=== PATIENT | male | born 1965 | race Caucasian/White ===

== ENCOUNTER 2017-05-19 12:31 | Outpatient (RCR) | payer OTHER, SELFPAY ==
[2017-05-12 22:47] LABS: Basophil# 0.01 X10^3/uL; Basophil% 0.1 % (0-1); Eosinophil# 0.12 X10^3/uL; Eosinophils% 1.2 % (0-5); Hematocrit 38.3 % (40-54); Hemoglobin 12.6 g/dl (13.0-16.5); Lymphocyte % 5.8 % (19-41); Mean Corp Hgb Conc 32.9 g/gl (32-36); Mean Corpuscular Hgb 28.8 pg (27.0-32.0); Mean Corpuscular Volume 87.6 fL (80-94); Mean Platelet Vol. 9.7 fl (6.2-12.0); Monocyte# 0.63 X10^3/uL; Monocyte% 6.1 % (0-10); Neutrophil # 9.02 X10^3/uL (2.7-7.7); Neutrophil % 86.7 % (47-70); Platelet Count 188 K/mm3 (150-450); RBC Distribution Width CV 13.9 % (11.6-14.6); RBC Distribution Width SD 44.6 fl (35.1-43.9); Red Blood Count 4.37 M/mm3 (4.6-6.2); White Blood Count 10.4 K/mm3 (4.4-11.0)
[2017-05-12 22:53] LABS: Creatinine, Serum 0.91 mg/dL (0.70-1.30); EST Glomerular Filtration Rate 93 mL/min (>60); Est Glom Filt Rate - Afr Amer 112 mL/min (>60); Vancomycin, Random Level 11.3 ug/mL (0.0-15.0)
[2017-05-12 22:54] LABS: Differential Indicated SCAN CRITERIA MET; POSITIVE COUNT NO; POSITIVE DIFFERENTIAL YES; POSITIVE MORPHOLOGY NO
[2017-05-12 23:19] LABS: Toxic Granulation RARE
[2017-05-12 23:20] LABS: Anisocytosis RARE; Platelet Estimate ADEQUATE (ADEQ)
[2017-05-19 14:55] LABS: Absolute Lymphocyte Count 1.24 X10^3/ul (0.83-4.51); Absolute Neutrophil Count 4.2 X10^3/uL (2.0-7.7); Basophil# 0.04 X10^3/uL; Basophil% 0.6 % (0-1); Eosinophil# 0.16 X10^3/uL; Eosinophils% 2.5 % (0-5); Hematocrit 38.5 % (40-54); Hemoglobin 12.3 g/dl (13.0-16.5); Lymphocyte # 1.24 X10^3/ul (4.0); Lymphocyte % 19.6 % (19-41); Mean Corp Hgb Conc 31.9 g/gl (32-36); Mean Corpuscular Hgb 28.3 pg (27.0-32.0); Mean Corpuscular Volume 88.5 fL (80-94); Mean Platelet Vol. 10.4 fl (6.2-12.0); Monocyte# 0.73 X10^3/uL; Monocyte% 11.5 % (0-10); Neutrophil # 4.16 X10^3/uL (2.7-7.7); Neutrophil % 65.6 % (47-70); Platelet Count 199 K/mm3 (150-450); RBC Distribution Width CV 14.2 % (11.6-14.6); RBC Distribution Width SD 46.2 fl (35.1-43.9); Red Blood Count 4.35 M/mm3 (4.6-6.2); White Blood Count 6.3 K/mm3 (4.4-11.0)
[2017-05-19 14:57] LABS: POSITIVE COUNT NO; POSITIVE DIFFERENTIAL NO; POSITIVE MORPHOLOGY NO
[2017-05-19 15:04] LABS: Vancomycin, Random Level 12.2 ug/mL (0.0-15.0)
[2017-05-19 15:05] LABS: Creatinine, Serum 1.02 mg/dL (0.70-1.30); EST Glomerular Filtration Rate 82 mL/min (>60); Est Glom Filt Rate - Afr Amer 99 mL/min (>60)
== END 2017-06-04 23:59 ==
LOC: HHLAB 12:31
PROVIDERS: Family Provider Family Medicine; PCP Family Medicine
DX: Z79.2 Long term (current) use of antibiotics (principal); Z87.891 Personal history of nicotine dependence
CPT/HCPCS: 80202; 82565; 85025

== ENCOUNTER → 2018-02-14 09:51 | Outpatient (CLI) | payer OTHER, SELFPAY ==
[2018-02-14 10:28] LABS: International Normalized Ratio 2.3; Prothrombin Time (Protime)PT. 25.3 SECONDS (11.7-14.9)
== END ==
PROVIDERS: Family Provider Internal Medicine; PCP Internal Medicine; Referring Provider Internal Medicine; Visit Provider Internal Medicine
DX: I48.91 Unspecified atrial fibrillation (principal); I51.3 Intracardiac thrombosis, not elsewhere classified
CPT/HCPCS: 36415; 85610

== ENCOUNTER → 2018-06-03 11:56 | Outpatient (CLI) | payer OTHER, SELFPAY ==
[2018-06-03 12:26] LABS: International Normalized Ratio 1.8; Prothrombin Time (Protime)PT. 20.5 SECONDS (11.7-14.9)
== END ==
PROVIDERS: Family Provider Internal Medicine; PCP Internal Medicine; Referring Provider Internal Medicine; Visit Provider Internal Medicine
DX: I48.91 Unspecified atrial fibrillation (principal); I51.3 Intracardiac thrombosis, not elsewhere classified
CPT/HCPCS: 85610

== ENCOUNTER → 2019-02-11 | Outpatient (CLI) | payer OTHER, SELFPAY | END | disposition home or self-care (01) | LOC: LAB 15:27 | PROVIDERS: Family Provider Internal Medicine; PCP Internal Medicine | DX: I50.43 Acute on chronic combined systolic (congestive) and diastolic (congestive) heart failure (principal) | CPT/HCPCS: 36415 ==

== ENCOUNTER 2019-11-05 06:12 | Emergency (ER) | payer OTHER, SELFPAY ==
[2019-11-05 06:16] VITALS: BP 107/85; PULSE 104; RESP 18; TEMP 36.4; O2SAT 95; BMI 24.6
--- NOTE | 2019-11-05 06:22 | EKG12_ITS ---
Test Reason : ABD PAIN/HEART HX Blood Pressure : / mmHG Vent. Rate : 087 BPM Atrial Rate : 277 BPM P-R Int : 000 ms QRS Dur : 122 ms QT Int : 422 ms P-R-T Axes : 000 -01 147 degrees QTc Int : 507 ms Atrial flutter with variable A-V block with premature ventricular or aberrantly conducted complexes Non-specific intra-ventricular conduction delay ST & T wave abnormality, consider lateral ischemia Abnormal ECG Confirmed by YULIANA CISNEROS ([id number]), editorial cartoonist DISHA DUEÑAS ([id number]) on 11/08/2019 2:16:39 PM Referred By: TONJA Confirmed By:YULIANA CISNEROS
--- NOTE | 2019-11-05 06:23 | CT_ITS ---
HISTORY: ABD PAIN ABOVE UMBILICUS THAT MOVES AROUND. NO N/V/D/C. ADDITIONAL HISTORY: None provided. TECHNIQUE: CT images were obtained of the abdomen and pelvis without IV contrast. Enteric contrast was not given. Number of images including paperwork: 445. A radiation dose optimization technique was used for this scan. COMPARISON: None FINDINGS: Evaluation of the abdominopelvic organs is limited in the absence of contrast. LOWER THORAX: Enlarged heart. Small pericardial effusion. Small bilateral pleural effusions. Interstitial septal thickening and mild ground glass opacities. LIVER: No concerning focal lesion. Enlarged, right lobe approximately 17 cm. GALLBLADDER: No radiopaque calculi. BILE DUCTS: No significant biliary dilatation. SPLEEN: Unremarkable. PANCREAS: Unremarkable. ADRENAL GLANDS: Unremarkable. KIDNEYS/URETERS: Simple bilateral renal cysts. No further evaluation warranted per consensus criteria. BOWEL: No bowel obstruction. No significant bowel wall thickening. No localized inflammation. Colonic diverticulosis. APPENDIX: Normal. FREE FLUID: Small amount of free fluid. FREE AIR: None. LYMPH NODES: No pathologic appearing adenopathy. PERITONEUM, RETROPERITONEUM AND MESENTERY: Otherwise unremarkable. VASCULATURE: Atherosclerotic calcification. ABDOMINAL WALL: Unremarkable. PELVIS: Unremarkable bladder. OSSEOUS AND SOFT TISSUE STRUCTURES: No acute skeletal findings. Degenerative changes. CT/Abdomen/Pelvis without Cont IMPRESSION: No acute abdominopelvic abnormality. Colonic diverticulosis. Congestive heart failure. Individualized dose optimization techniques were used for this CT. at 0758 Reported and signed by: Pooja Whitmore MD Electronically Signed: Pooja Whitmore MD at 7:58 EDT Tel , Service support ,
--- NOTE | 2019-11-05 06:23 | ED.VIS.GEN ---
History of Present Illness Chief Complaint: Abd Pain Informant: Patient Narrative: Patient stated he has been having abdominal pain just above his umbilicus for the last 12 hours after work continuous sharp and dull pain. Worse by laying flat. Relieved by sitting up. No nausea vomiting or diarrhea. He tried Tylenol and ibuprofen with minimal relief of symptoms. He is never had this before. No previous abdominal surgeries. No radiation of pain. Has a history of congestive heart failure. No history of AL in the past. Denies any chest pain or shortness of breath. Past Medical History - Allergies and Home Meds Allergies/Adverse Reactions: Allergies lisinopril Adverse Reaction (Verified 11/05/19 06:24) PT UNSURE OF REACTION Primary Care Physician: Tyrone Mcgowan MD [Primary Care Provider] - Prior records reviewed: Yes Past Medical History: - - CHF Surgical History: - - Reviewed Lives: With Family Smoking Status: Former smoker Alcohol: None Drugs: None Review of Systems General: Denies: Chills, Fever, Sweats Eyes: Denies: Visual changes - bilaterally, Diplopia ENT: Denies: Rhinorrhea, Sore throat Cardiovascular: Denies: Chest pain, Palpitations Respiratory: Denies: Dyspnea, Cough, Dyspnea on exertion Gastrointestinal: Reports: Abdominal pain. Denies: Nausea, Vomiting, Diarrhea, Melena, Hematochezia Genitourinary: Denies: Dysuria, Hematuria, Frequency Musculoskeletal: Denies: Back pain, Extremity Pain Skin: Denies: Rash, Wounds Neurological: Denies: Headache, Weakness, Numbness Physical Exam Vital Signs/Narrative: Vital Signs Temp Pulse Resp BP Pulse Ox 11/05/19 06:16 97.5 F L 104 H 18 107/85 H 95 General: Well nourished, Well developed, No Acute Distress Head: Normocephalic, Atraumatic Eyes: Perrl, EOMI ENT: Moist mucous membranes, No rhinorrhea Neck: Supple, Nontender Cardiovascular: Regular rate, Regular rhythm, No murmurs Respiratory: No distress, CTA bilaterally, Chest nontender Abdomen: Soft, Nondistended, Normal bowel sounds, No masses, Tender - Tender in the epigastric region. Negative for: Guarding, Rebound tenderness Back: Nontender, Normal Inspection Extremities: Nontender, No edema Skin: Normal color, No rash Neurological: Alert, Oriented x3, Cranial nerves II-XII grossly intact, Normal Strength, Normal Sensation Psychological: Normal affect, Normal Mood Diagnostic/Tx/Re-eval - Medical Decision Making IV established. Lab work and CT abdomen pelvis obtained. The patient did not want a thing for pain. Lab work shows elevated liver function test. No leukocytosis. CT abdomen pelvis pending. Will be signed out to the a.m. oncoming physician for final disposition. This patient may have biliary colic versus acute cholecystitis. ED Disposition - Plan for ED Patient: Referrals: Tyrone Mcgowan MD [Primary Care Provider] -
[2019-11-05 06:34] LABS: Absolute Lymphocyte Count 1.14 X10^3/uL (0.83-4.51); Absolute Neutrophil Count 5.5 X10^3/uL (2.0-7.7); Basophil# 0.02 X10^3/uL; Basophil% 0.3 % (0-1); Eosinophil# 0.04 X10^3/uL; Eosinophils% 0.5 % (0-5); Hematocrit 39.4 % (40-54); Hemoglobin 12.9 g/dL (13.0-16.5); Lymphocyte # 1.14 X10^3/ul (4.0); Lymphocyte % 15.6 % (19-41); Mean Corp Hgb Conc 32.7 g/dL (32-36); Mean Corpuscular Hgb 29.3 pg (27.0-32.0); Mean Corpuscular Volume 89.5 fL (80-94); Mean Platelet Vol. 9.5 fl (6.2-12.0); Monocyte# 0.57 X10^3/uL; Monocyte% 7.8 % (0-10); NRBC Flagged by Analyzer 0 % (0-5); Neutrophil % 75.5 % (47-70); Platelet Count 239 K/mm3 (150-450); RBC Distribution Width CV 13.8 % (11.6-14.6); RBC Distribution Width SD 45.1 fl (35.1-43.9); White Blood Count 7.3 K/mm3 (4.4-11.0)
[2019-11-05 06:56] LABS: ALB/GLOB Ratio 1.4 RATIO (0.9-2.4); AST(SGOT) 61 U/L (15-37); Alanine Aminotransfer ALT/SGPT 109 U/L (16-61); Albumin, Serum 3.8 g/dL (3.2-5.0); Alkaline Phosphatase 67 U/L (45-117); Anion Gap 6 (5-15); BUN 28 mg/dL (7-18); BUN/Creat Ratio 27.2 RATIO (10-20); Chloride 110 mmol/L (98-107); Creatinine, Serum 1.03 mg/dL (0.70-1.30); EST Glomerular Filtration Rate 80 mL/min (>60); Est Glom Filt Rate - Afr Amer 97 mL/min (>60); Estimated Creatinine Clearance 76.65 ml/min; Globulin 2.7 g/dL (2.2-4.2); Glucose 100 mg/dL (74-106); Lipase 92 U/L (73-393); Potassium 4.2 mmol/L (3.5-5.1); Protein, Total 6.5 g/dL (6.4-8.2); Sodium Level 140 mmol/L (136-145)
[2019-11-05 07:23] LABS: International Normalized Ratio 2.6; Prothrombin Time (Protime)PT. 27.2 SECONDS (11.7-14.9)
--- NOTE | 2019-11-05 08:05 | US_ITS ---
STUDY: ABDOMINAL ULTRASOUND - RIGHT UPPER QUADRANT REASON FOR VISIT: Male, 54 years old EPIGASTRIC PAIN COMES AND GOES TECHNIQUE: Ultrasound evaluation of the right upper quadrant was performed with real-time and static barron-scale imaging. TECHNICAL QUALITY: Adequate. COMPARISON: CT. FINDINGS: Liver: The liver measures 15.7 cm. There is normal echogenicity of the liver. The bile ducts are within normal limits. There is hepatic color flow. The direction of portal flow is hepatopetal. There is no demonstrated mass lesion. There is small right pleural effusion. Gallbladder: Normal distended gallbladder. The gallbladder wall measures 2 mm. There is a negative sonographic Bowens''s sign. There is no pericholecystic fluid. There are no gallstones. Common Bile Duct (C.B.D.): The common bile duct measures 5 mm. Pancreas: Normal size of the head, body and tail of the pancreas. There is normal echogenicity of the pancreas. There is no demonstrated pancreatic mass or cyst. Right Kidney: Normal size of the right kidney. The right kidney measures 9.4 cm. Normal renal cortex. The right cortex measures 1.3 cm. There is 2.0 cm cyst. There is no right hydronephrosis. US/Gallbladder IMPRESSION: No gallstones or biliary dilatation. Electronically Signed: Ishmael Myrick MD at 10:10 EDT , Service support ,
[2019-11-05] MEDS: Ondansetron 4 MG/2 ML Vial IV (08:29)
[2019-11-05] MEDS: Morphine 4 MG/ML Syringe IV (08:29)
[2019-11-05 09:08] VITALS: BP 106/84; PULSE 66; O2SAT 95
--- NOTE | 2019-11-05 10:41 | ED.VISSUMM ---
- ER Visit Summary Date of Service: 11/05/19 Chief Complaint: [] History of Present Illness: The patient is a 54 M with past medical history of atrial flutter who was signed out to me by Dr. Harish wilkinson at 07 100. At that time CT was pending. CT results are negative however patient does have elevated bilirubin as well as a transaminitis. On reevaluation the patient he is having worsening pain and does request pain medication at this time. Was given morphine and Zofran. This did resolve the patient's pain. Right upper quadrant ultrasound was done which also shows no evidence of cholelithiasis or gallbladder wall thickening or CBD dilatation. There are extensive discussion with the patient he is agreeable to outpatient follow-up. Spoke with Dr. Cleaning who also is agreeable with follow-up. Patient will be given Pepcid for home and advised use Tylenol for pain. Asked to return for worsening symptoms. I did also advise him to refrain from fatty foods. Patient agreeable and discharged home in stable condition. [] This note was generated with [employer] ([employer] dictation software. It may contain incorrect words, spelling, and punctuation that were not noted in review of the chart prior to signing ED Disposition - Plan for ED Patient: Disposition: Home or Assisted Living Diagnosis: Biliary colic Instructions: ED Gallstones with Biliary Colic Prescriptions: Famotidine [Pepcid] 20 mg PO BID #28 tab Transmission Status: Received by [facility] Referrals: Tyrone Mcgowan MD [Primary Care Provider] - Montse Cleaning MD [STAFF PHYSICIAN] - As soon as possible
[2019-11-05 10:54] VITALS: BP 108/87; PULSE 80; RESP 14; TEMP 36.1
== END 2019-11-05 11:00 | disposition home or self-care (01) ==
PROVIDERS: Emergency Medicine; Emergency Provider Emergency Medicine; PCP Internal Medicine
DX: K80.50 Calculus of bile duct without cholangitis or cholecystitis without obstruction (principal); I48.92 Unspecified atrial flutter; Z87.891 Personal history of nicotine dependence
CPT/HCPCS: 74176; 76705; 80053; 83690; 84484; 85025; 85610; 93005; 96374; 96375; 99282; A4216; J2405

== ENCOUNTER 2020-01-14 06:58 | Inpatient (IN) | payer OTHER, SELFPAY ==
[2020-01-14] VITALS (19 sets, daily range): BP systolic 84–106; BP diastolic 60–82; PULSE 76–104; RESP 16–20; TEMP 36.4–37.4; O2SAT 94–98; BMI 23.3; BMI 23.4; BMI 22.9
--- NOTE | 2020-01-14 07:18 | EKG12_ITS ---
Test Reason : A FIB Blood Pressure : / mmHG Vent. Rate : 089 BPM Atrial Rate : 300 BPM P-R Int : 000 ms QRS Dur : 122 ms QT Int : 430 ms P-R-T Axes : 000 -27 165 degrees QTc Int : 523 ms Atrial flutter with variable A-V block Non-specific intra-ventricular conduction delay ST & T wave abnormality, consider lateral ischemia Abnormal ECG Confirmed by PAM PATTON, BUBBA ([id number]), news video editor ART SHAH ([id number]) on 01/17/2020 1:10:00 PM Referred By: ZAHIDA Confirmed By:BUBBA OROZCO MD
--- NOTE | 2020-01-14 07:21 | ED.DCSUM_ITS ---
- ER Visit Summary Date of Service: 01/14/20 Chief Complaint: Cough History of Present Illness: The patient is a [address] Mcgowan. 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 He has a history of atrial fibrillation and is on Coumadin. He reports that he has a cough that began 1 week ago. Is productive yellow sputum. He reports that the sputum is blood-tinged since yesterday. He denies any fever, chills, or chest pain. He denies any sick contacts. He denies any possible exposure to coronavirus. He does report he is had similar episodes in the past. Patient denies any fever, chills, chest pain, shortness of breath. He does report that he has generalized weakness. Physical Examination: Vitals: Stable. Afebrile. General: Well-nourished and well-developed. Head: Normocephalic atraumatic. Neck: Supple, no lymphadenopathy. No JVD. Nontender. Cardiovascular: Irregular rhythm with a 2 out of 6 systolic murmur. Respiratory: No respiratory distress. Clear to auscultation bilaterally. Abdominal: Soft, nontender, nondistended, normal bowel sounds. No guarding, rebound, or peritoneal signs. Back: Nontender. Extremities: Nontender, no edema. Skin: Normal color, no rash. Neurologic: Alert and oriented ?3. Cranial nerves II through XII are intact. Normal strength and sensation. Psych: Normal affect. Test Results: EKG is atrial flutter with variable block at a rate of 89. He has T wave inversions in leads V4 to V6 as well as 1 and aVL. This is unchanged from November of this year. CBC shows an H&H 12.3 and 37.6, segmented neutrophils 82, lymphocytes of 8. Chem-7 shows a chloride of 111, BUN 24, glucose 130, calcium of 8.3. INR is 3.2. COVID-19 is pending. Clinical Impression(s) from Imaging Studies Chest X-Ray 01/14/20 07:25 IMPRESSION: Focal right upper lobe infiltrate, possibly pneumonia in the appropriate clinical setting. Other causes of infiltrate and mass not excluded. If clinical findings are concordant with pneumonia, closed follow-up recommended to ensure resolution. If not, CT chest with contrast should be considered for further assessment. at 0744 Reported and signed by: Pooja Whitmore MD Electronically Signed: Pooja Whitmore MD at 7:44 EDT Tel , Service support , Emergency Department Course and Treatment: Patient had an IV placed. He has a history of CHF and was not given any fluids. He is resting comfortably. Repeat blood pressure is 89/68. Patient reports that his blood pressure is typically 108/68. He was given a 500 cc bolus of normal saline. He is given Rocephin and Zithromax IV. A lactic acid was ordered and returned at 1.1. Blood pressure is increased to 97/73. The patient stood up to go to the bathroom and got very lightheaded. Repeat blood pressure was in the 70 systolic. Blood pressure currently is 106/63. Treatment Plan: Patient had wanted to go home. However, with his hypotension and comorbidities (including ejection fraction of 15%) I think that admission to the hospital is the more reasonable thing to do. Patient will be discussed with the hospital admitted for further evaluation and treatment. Disposition: T admitted in serious condition. Impression: 1. Pneumonia. 2. Coumadin coagulopathy. 3. Hypotension. 4. Ejection fraction of 15%. 5. Atrial flutter. This note was generated with [employer] dictation software. It may contain incorrect words, spelling, and punctuation that were not noted in review of the chart prior to signing ED Disposition - Plan for ED Patient: Instructions: ED PNEUMONITIS Adult Prescriptions: Cefpodoxime Proxetil 200 mg PO BID #14 tab Prescription Printed Azithromycin [Zithromax Z-Sachin] 250 mg PO UD #1 box Prescription Printed Referrals: Tyrone Mcgowan MD [Primary Care Provider] - 01/17/20 Additional Instructions: Do not take Coumadin for the next 2 days. Have your INR checked and speak with your doctor about further dosing of your Coumadin. Antibiotics can make your Coumadin level go up.
--- NOTE | 2020-01-14 07:25 | RAD_ITS ---
HISTORY: cough x 2 days, now coughing up blood ADDITIONAL HISTORY: None provided. EXAMINATION/TECHNIQUE: XR Chest 1 View AP/PA Number of images including paperwork: 1 COMPARISON: None FINDINGS: LUNGS AND PLEURA: Focal right upper lobe consolidation. The lungs are otherwise grossly clear. No sizable pleural effusion or pneumothorax. CARDIAC SILHOUETTE: Unremarkable. MEDIASTINUM AND TERENCE: Unremarkable. UPPER ABDOMEN: Unremarkable. SKELETON AND SOFT TISSUES: No acute skeletal findings. OTHER DEVICES AND HARDWARE: None. RAD/Chest 1 View (Portable) IMPRESSION: Focal right upper lobe infiltrate, possibly pneumonia in the appropriate clinical setting. Other causes of infiltrate and mass not excluded. If clinical findings are concordant with pneumonia, closed follow-up recommended to ensure resolution. If not, CT chest with contrast should be considered for further assessment. at 0744 Reported and signed by: Pooja Whitmore MD Electronically Signed: Pooja Whitmore MD at 7:44 EDT Tel , Service support ,
[2020-01-14 07:28] LABS: Basophil# 0.05 X10^3/uL; Basophil% 0.5 % (0-1); Eosinophil# 0.03 X10^3/uL; Eosinophils% 0.3 % (0-5); Hematocrit 37.6 % (40-54); Hemoglobin 12.3 g/dL (13.0-16.5); Lymphocyte % 8.2 % (19-41); Mean Corp Hgb Conc 32.7 g/dL (32-36); Mean Corpuscular Hgb 29.1 pg (27.0-32.0); Mean Corpuscular Volume 88.9 fL (80-94); Mean Platelet Vol. 9.9 fl (6.2-12.0); Monocyte# 0.96 X10^3/uL; Monocyte% 8.7 % (0-10); NRBC Flagged by Analyzer 0 % (0-5); Neutrophil # 9.01 X10^3/uL (2.7-7.7); Neutrophil % 81.8 % (47-70); Platelet Count 249 K/mm3 (150-450); RBC Distribution Width CV 13.4 % (11.6-14.6); RBC Distribution Width SD 43.8 fl (35.1-43.9); Red Blood Count 4.23 M/mm3 (4.6-6.2)
[2020-01-14 07:34] LABS: International Normalized Ratio 3.2; Prothrombin Time (Protime)PT. 32.4 SECONDS (11.7-14.9)
[2020-01-14 07:38] LABS: Anion Gap 7 (5-15); BUN 24 mg/dL (7-18); BUN/Creat Ratio 24.1 RATIO (10-20); Calcium,Total 8.3 mg/dL (8.5-10.1); Chloride 111 mmol/L (98-107); EST Glomerular Filtration Rate 83 mL/min (>60); Est Glom Filt Rate - Afr Amer 100 mL/min (>60); Estimated Creatinine Clearance 78.95 ml/min; Glucose 132 mg/dL (74-106); Potassium 3.6 mmol/L (3.5-5.1); Sodium Level 141 mmol/L (136-145)
[2020-01-14 09:20] LABS: Lactic Acid 1.1 mmol/L (0.4-1.9)
--- NOTE | 2020-01-14 10:50 | ED.RN ---
PT C/O DIZZINESS, NAUSEA, ABD PAIN, AND BURNING IN THE RIGHT ARM. ON ASSESSMENT, PT'S RIGHT ARM IS RED. DR. GRIFFIN AWARE. ZITHROMAX INFUSION COMPLETE.
[2020-01-14] MEDS: DiphenhydrAMINE 50 MG/ML Syringe 25 MG IV (11:00)
[2020-01-14 11:20] LABS: AST(SGOT) 37 U/L (15-37); Alanine Aminotransfer ALT/SGPT 33 U/L (16-61); Albumin, Serum 3.4 g/dL (3.2-5.0); Alkaline Phosphatase 91 U/L (45-117); Bilirubin, Direct 0.32 mg/dL (0.00-0.30); Globulin 2.6 g/dL (2.2-4.2); Lipase 113 U/L (73-393)
[2020-01-14] MEDS: fentaNYL 100 MCG/2 ML Ampul 50 MCG IV (11:34)
[2020-01-14] MEDS: Ondansetron 4 MG/2 ML Vial IV (11:34)
--- NOTE | 2020-01-14 12:18 | HP.PCM_ITS ---
Problem List (1) Chronic systolic heart failure Status: Chronic (2) Right upper lobe pneumonia Status: Acute History of Present Illness Date of Admission: 01/14/20 Chief Complaint: Cough and hemoptysis for about 4 days The patient is a 54 year old M with history of chronic heart failure, atrial flutter came to ED with cough for 1 week and hemoptysis for last 2 days. Patient denies chest pain or shortness of breath, fever or chills. Cough is productive with yellow sputum and having hemoptysis more than 50 times of his coughing last 2 days. He stated he attended 1 large gathering about 6 days ago. Patient denies any previous history of pneumonia. He has significant history of chronic heart failure and he states his last EF was 10 to 15%. 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 He also developed atrial fibrillation/flutter and is on Coumadin and is supposed to see Dr. LEE in [facility] on January 24 In ED, his blood pressure was low 98/72, heart rate 77 but his baseline blood pressure usually runs around systolic 100 because of heart failure. He felt dizzy while on IV antibiotic. He dropped blood pressure on walking 84/63 and was given 500 normal saline bolus. His map is 81. Chest x-ray shows right upper lobe consolidation. EKG shows atrial flutter with variable rate with nonspecific intraventricular conduction delay, ventricular rate 89 bpm. On November 2019 EKG also it shows atrial flutter. Patient is on Coumadin INR is 3.2. Significant abnormal in basic labs done in ER total bili 2.5, direct 2.32 but normal transaminases and alkaline phosphatase. We will have in November 2019 also showed total bilirubin 1.7. [] Past Medical History Past Medical History (Chronic Problems): Chronic Problems Chronic systolic heart failure (Chronic) Allergies lisinopril Adverse Reaction (Verified 01/14/20 07:02) PT UNSURE OF REACTION Home Medications: Ambulatory Orders Medication Instructions Recorded Amiodarone HCl 200 mg PO DAILY 11/05/19 Isosorbide Dinitrate 40 mg PO TID 11/05/19 Losartan Potassium 12.5 mg PO BID 11/05/19 Sertraline HCl 50 mg PO DAILY 11/05/19 Warfarin [Coumadin ([facility])] 2.5 mg PO 11/05/19 Warfarin [Coumadin ([facility])] 5 mg PO QWEEK 11/05/19 hydrALAZINE [Apresoline] 75 mg PO Q8H 11/05/19 Azithromycin [Zithromax Z-Sachin] 250 mg PO UD #1 box 01/14/20 Cefpodoxime Proxetil 200 mg PO BID #14 tab 01/14/20 Surgical History: - - Reviewed Smoking Status: Never smoker Tobacco Use: Non-smoker Alcohol: None Drugs: None - *Family History Paternal History Items: Heart Disease - OK/coronary artery disease Review of Systems Constitutional: Denies: Chills, Fever, Weight Change HEENT: Denies: Head Aches, Sinus Congestion, Sinus Drainage Cardiovascular: Denies: Chest Pain, Palpitations Respiratory: Reports: Cough, Hemoptysis, Shortness of breath upon exertion. Denies: Shortness of breath at rest, Sputum production Gastrointestinal: Denies: Abdominal Pain, Nausea, Vomiting Genitourinary: Denies: Dysuria, Frequency Musculoskeletal: Denies: Joint Tenderness Skin: Denies: Rash, Wounds Neurological: Denies: Numbness, Tingling, Focal weakness Psychiatric: Denies: Anxiety, Depression, Homicidal Ideations, Suicidal Ideations Hematologic/ Lymphatic: Denies: Easy Bruising, Easy Bleeding VTE Information - Inpt Only VTE Present on Admission: No VTE Mechan Device Prophylaxis: None VTE Pharm Prophylaxis ordered?: Yes Patient Problems: Active and Suspected Problems Right upper lobe pneumonia (Acute) - Physical Exam Vitals/I&O's: Vital Signs Temp Pulse Resp BP Pulse Ox 97.7 F L 89 16 91/77 98 01/14/20 12:16 01/14/20 12:16 01/14/20 12:16 01/14/20 12:16 01/14/20 12:16 Oxygen Delivery Method Room Air Weight: 149 lb 4.047 oz Body Mass Index (BMI) 23.3 Intake and Output for Last 24 Hours 01/12/20 01/13/20 01/14/20 23:59 23:59 23:59 Intake Total 805 / 805 Balance 805 / 805 General: Alert, Oriented x3, Cooperative HEENT: Atraumatic, PERRLA, EOMI, Normocephalic Oral: No Gingival or Mucosal Lesions/ Ulcerations Neck: Supple, No JVD, Negative Carotid Bruits Lungs: Clear to auscultation, No rhonchi, No wheeze, No rales, Diminished - Air entry diminished bilaterally. Cardiovascular: Normal S1, Normal S2, No murmurs, Irregular Rate Abdomen: Bowel Sounds Present, Soft, Non Tender, Non-Distended Extremities: No edema, Capillary Refill Less than 3 Seconds Skin: No rashes, No breakdown Musculoskeletal: No Tenderness to Palpation of Joints or Extremities Neurological: Cranial nerves II-XII grossly intact, Deep Tendon Reflexes 2+/4 and Symmetrical, Neuro grossly intact, Motor Exam 5/5 strength throughout Psych/Mental Status: Normal Affect, Appropriate Laboratory Results 01/14/20 07:17: WBC 11.0, RBC 4.23 L, Hgb 12.3 L, Hct 37.6 L, MCV 88.9, MCH 29.1, MCHC 32.7, RDW Std Deviation 43.8, RDW Coeff of Renato 13.4, Plt Count 249, MPV 9.9, Immature Gran % (Auto) 0.500, Neut % (Auto) 81.8 H, Lymph % (Auto) 8.2 L, Bertie % (Auto) 8.7, Eos % (Auto) 0.3, Baso % (Auto) 0.5, Absolute Neuts (auto) 9.0 H, Absolute Lymphs (auto) 0.90, Nucleated RBC % 0 01/14/20 07:17: PT 32.4 H, INR 3.2 01/14/20 07:17: Sodium 141, Potassium 3.6, Chloride 111 H, Carbon Dioxide 23.0, Anion Gap 7, BUN 24 H, Creatinine 1.00, Estim Creat Clear Calc 78.95, Est GFR (MDRD) Af Amer 100, Est GFR (MDRD) Non-Af 83, BUN/Creatinine Ratio 24.1 H, Glucose 132 H, Calcium 8.3 L 01/14/20 07:17: Lactic Acid 1.1 01/14/20 07:17: Total Bilirubin 2.50 H, Direct Bilirubin 0.32 H, AST 37, ALT 33, Alkaline Phosphatase 91, Total Protein 6.0 L, Albumin 3.4, Globulin 2.6, Lipase 113 01/14/20 07:35: COVID-19 (LIZY) Pending Assessment/Plan All Active Problems Right upper lobe pneumonia (Acute) The patient is a 54 year old M with history of chronic heart failure, atrial flutter came to ED with cough for 1 week and hemoptysis for last 2 days and chest x-ray consistent of right upper lobe pneumonia. Chest x-ray shows right upper lobe consolidation. EKG shows atrial flutter with variable rate with nonspecific intraventricular conduction delay, ventricular rate 89 bpm. [] 1. Right upper lobe pneumonia: There is pending COVID-19 test. If COVID-19 PCR negative, patient can go to PCU on satellite project site monitor and if positive, ICU. Patient had 2 g IV ceftriaxone and Zithromax in ED. Will start on broad- spectrum IV antibiotic Zosyn and doxycycline for atypical coverage. Patient is on amiodarone therefore will avoid Zithromax. Pneumonia work-up including sputum culture, blood culture, urinary antigens, respiratory panel and MRSA from nasal screen. Albuterol PRN for shortness of breath. 2. Chronic systolic heart failure: Obtain previous 2D echo from PCP. Patient does not have leg edema, pulmonary congestion/edema. Patient is on losartan, isosorbide dinitrate, hydralazine and amiodarone at home and is continued. Will obtain 2D echo here. CHF core measures including fluid restriction to 1.5 L, daily weight monitoring, cardiac diet and intake and output charting. 3. Chronic atrial flutter: Patient is scheduled for RFA in [facility] on January 24. Continue amiodarone. INR 3.2 and will temporarily hold Coumadin. Monitor INR daily. 4. VTE prophylaxis: INR supratherapeutic. Inpatient E&M: 93391 In Hosp L3
--- NOTE | 2020-01-14 13:14 | ED.RN ---
lab called about pt being admitted instead of dc'd. covid test changed to inhouse per vitor in lab. pt aware waiting on covid results.
--- NOTE | 2020-01-14 15:09 | ECHOD_ITS ---
Reason For Study: Heart Failure Procedure This was a 2D Doppler, Color Flow transthoracic echocardiogram. Exam performed portable in patient room. Left Ventricle Severely dilated left ventricle. The estimated ejection fraction is 20-25 %. Severe global left ventricular systolic dysfunction. Unable to assess diastolic dysfunction due to arrhythmia. Right Ventricle Moderately dilated right ventricle. Moderately severe global right ventricular systolic dysfunction. Atria The left atrium is severely enlarged. Spontaneous echo suggestive of low flow. The right atrium is moderately enlarged. Mitral Valve Mild (1+) eccentric mitral valve insufficiency. Tricuspid Valve Mild to moderate (1-2+) tricuspid valve insufficiency. Unable to estimate RV systolic pressure due to insufficient tricuspid regurgitant envelope. Aortic Valve Mild diffuse aortic valve thickening. Pulmonic Valve No eccentric pulmonic valve insufficiency. Great Vessels The inferior vena cava is dilated. and partially collapses. Pericardium/Pleural No pericardial effusion. MMode/2D Measurements & Calculations LVIDd: 6.9 cm IVSd: 0.92 cm LA dimension: 6.0 cm LVIDs: 6.3 cm LVPWd: 0.95 cm RVDd: 4.7 cm FS: 9.1 % LAV(MOD-bp): 170.8 ml LA A4 area: 39.1 cm2 RA A4 area: 22.7 cm2 LAV(MOD-bp) Indexed: 96.6 ml/m2 LAV(MOD-sp2): 161.7 ml LAV(MOD-sp4): 160.2 ml Doppler Measurements & Calculations MV E max sarah: 90.9 cm/sec Ao V2 max: 87.0 cm/sec LV V1 max: 83.8 cm/sec Ao max P.2 mmHg LV V1 max P.9 mmHg MR max sarah: 369.5 cm/sec PA V2 max: 78.5 cm/sec TR max sarah: 321.5 cm/sec MR max P.6 mmHg TR max P.3 mmHg MR mean sarah: 295.8 cm/sec MR mean P.0 mmHg MR VTI: 119.2 cm Interpretation Summary Severely dilated left ventricle. The estimated ejection fraction is 20-25 %. Severe global left ventricular systolic dysfunction. Moderately dilated right ventricle. Moderately severe global right ventricular systolic dysfunction. The left atrium is severely enlarged. Spontaneous echo suggestive of low flow The right atrium is moderately enlarged. Mild (1+) eccentric mitral valve insufficiency. Mild to moderate (1-2+) tricuspid valve insufficiency. The inferior vena cava is dilated and partially collapses. Ordering Physician: Ish Garber Referring Physician: Tyrone Mcgowan M.D. Performed By: Awais Kay RCS
[2020-01-14] MEDS: 0.9% Normal Saline 1,000 ML 75 ML IV (15:36)
[2020-01-14 15:59] LABS: Magnesium 2.4 mg/dL (1.6-2.6)
[2020-01-14 16:16] LABS: BNP,B-Type NATRIURETIC PEPTIDE 660.4 pg/mL (0-100)
[2020-01-14] MEDS: Enoxaparin 40 MG/0.4 ML Syringe SC (16:52)
--- NOTE | 2020-01-14 17:39 | NURSING ---
all documentation and medication administration completed by SN Krista, done under the supervision of this RN.
[2020-01-14 17:46] LABS: M R Staph aureus DNA By PCR Negative (Negative); Probe Check PASS; Specimen Processing Control PASS
[2020-01-14] MEDS: guaiFENesin 1,200 MG Tablet 1200 MG PO (21:41)
[2020-01-14] MEDS: Doxycycline 100 MG CAPSULE PO (21:41)
[2020-01-14] MEDS: Furosemide 20 MG/2 ML VIAL IV (22:12)
[2020-01-15] VITALS (11 sets, daily range): BP systolic 92–104; BP diastolic 60–77; PULSE 80–100; RESP 16–18; TEMP 36.4–36.8; O2SAT 95–100
[2020-01-15 07:33] LABS: Absolute Lymphocyte Count 1.61 X10^3/uL (0.83-4.51); Absolute Neutrophil Count 6.3 X10^3/uL (2.0-7.7); Basophil# 0.04 X10^3/uL; Basophil% 0.4 % (0-1); Eosinophil# 0.09 X10^3/uL; Hematocrit 36.2 % (40-54); Hemoglobin 11.8 g/dL (13.0-16.5); Lymphocyte # 1.61 X10^3/ul (4.0); Lymphocyte % 17.8 % (19-41); Mean Corp Hgb Conc 32.6 g/dL (32-36); Mean Corpuscular Hgb 29.1 pg (27.0-32.0); Mean Corpuscular Volume 89.2 fL (80-94); Mean Platelet Vol. 10.2 fl (6.2-12.0); Monocyte# 0.95 X10^3/uL; Monocyte% 10.5 % (0-10); NRBC Flagged by Analyzer 0 % (0-5); Neutrophil # 6.34 X10^3/uL (2.7-7.7); Platelet Count 235 K/mm3 (150-450); RBC Distribution Width CV 13.3 % (11.6-14.6); RBC Distribution Width SD 43.8 fl (35.1-43.9); Red Blood Count 4.06 M/mm3 (4.6-6.2); White Blood Count 9.1 K/mm3 (4.4-11.0)
[2020-01-15 07:43] LABS: International Normalized Ratio 3.4; Prothrombin Time (Protime)PT. 34.3 SECONDS (11.7-14.9)
[2020-01-15 08:07] LABS: AST(SGOT) 75 U/L (15-37); Alanine Aminotransfer ALT/SGPT 98 U/L (16-61); Albumin, Serum 2.8 g/dL (3.2-5.0); Alkaline Phosphatase 185 U/L (45-117); Anion Gap 10 (5-15); BUN 26 mg/dL (7-18); BUN/Creat Ratio 27.1 RATIO (10-20); Bilirubin, Direct 0.48 mg/dL (0.00-0.30); Calcium,Total 8.2 mg/dL (8.5-10.1); Chloride 107 mmol/L (98-107); Cholesterol 97 mg/dL (200); Creatinine, Serum 0.96 mg/dL (0.70-1.30); EST Glomerular Filtration Rate 87 mL/min (>60); Est Glom Filt Rate - Afr Amer 105 mL/min (>60); Estimated Creatinine Clearance 81.37 ml/min; Globulin 3.2 g/dL (2.2-4.2); Glucose 82 mg/dL (74-106); High Density Lipoprotein 37 mg/dL; Potassium 3.2 mmol/L (3.5-5.1); Sodium Level 140 mmol/L (136-145); Triglycerides 62 mg/dL; Very Low Density Lipoprotein 12 mg/dL (5-40)
[2020-01-15] MEDS: Amiodarone 200 MG Tablet PO (09:31)
[2020-01-15] MEDS: Doxycycline 100 MG CAPSULE PO (09:31)
[2020-01-15] MEDS: Enoxaparin 40 MG/0.4 ML Syringe SC (09:31)
[2020-01-15] MEDS: Losartan Potassium 25 MG Tablet 12.5 MG PO (09:31)
[2020-01-15] MEDS: Sertraline 50 MG Tablet PO (09:31)
[2020-01-15] MEDS: guaiFENesin 1,200 MG Tablet 1200 MG PO ×2 (09:31→21:03)
--- NOTE | 2020-01-15 13:34 | PCM.PN.HOSP ---
Patient Problems: Active and Suspected Problems Right upper lobe pneumonia (Acute) Reason for Visit: Follow-up for pneumonia and advanced heart failure Objective: Seen and examined. Patient shortness of breath is much better. Still has some occasional blood-tinged sputum. Patient is not on beta-jennifer because it makes him extremely fatigued and he cannot move himself and he was admitted 2-3 times in outside hospital, [facility] [place] for that. Patient also has significant concern about interaction about doxycycline giving rise to nausea, dyspeptic symptoms and therefore discontinued. Physical exam General: Alert, Oriented x3, Cooperative HEENT: Atraumatic, PERRLA, EOMI, Normocephalic Oral: No Gingival or Mucosal Lesions/ Ulcerations Neck: Supple, No JVD, Negative Carotid Bruits Lungs: Air entry diminished in bilateral lung bases. No crepitation/rhonchi. No tachypnea. Cardiovascular: Irregular heart rate, 9200/min. Normal S1, Normal S2, No murmurs Abdomen: Bowel Sounds Present, Soft, Non Tender, Non-Distended : No renal angle tenderness. No suprapubic tenderness. Extremities: No edema, Capillary Refill Less than 3 Seconds Skin: No rashes, No breakdown Musculoskeletal: No Tenderness to Palpation of Joints or Extremities Neurological: Cranial nerves II-XII grossly intact, Deep Tendon Reflexes 2+/4 and Symmetrical, Neuro grossly intact Psych/Mental Status: Normal Affect, Appropriate. Vitals/I&O's: Vital Signs Temp Pulse Resp BP Pulse Ox 97.6 F L 95 18 102/77 100 01/15/20 11:30 01/15/20 11:30 01/15/20 11:30 01/15/20 11:30 01/15/20 11:30 Oxygen Flow Rate (L/min) 2 Oxygen Delivery Method Nasal Cannula Weight: 144 lb 2.917 oz Body Mass Index (BMI) 22.9 Intake and Output for Last 24 Hours 01/13/20 01/14/20 01/15/20 23:59 23:59 23:59 Intake Total 1716.67 / 1716.67 649.58 / 649.58 Output Total 750 / 750 600 / 600 Balance 966.67 / 966.67 49.58 / 49.58 Microbiology Past 72 Hours 01/14/20 16:45 Sputum, Expectorated/Coughed Gram Stain - Final 01/14/20 07:17 Mucosa - Nose Respiratory Panel (PCR) - Final Rhinovirus 01/14/20 23:45 Urine, Clean Catch Legionella Antigen - Final 01/14/20 23:45 Urine, Clean Catch Streptococcus pneumoniae Antigen (M - Final Laboratory Results 01/14/20 07:17: COVID-19 (LIZY) Not Detected 01/14/20 07:17: B-Natriuretic Peptide 660.4 H 01/14/20 07:17: Magnesium 2.4 01/14/20 15:48: MRSA (PCR) Negative 01/15/20 06:18: PT 34.3 H, INR 3.4 01/15/20 06:18: Sodium 140, Potassium 3.2 L, Chloride 107, Carbon Dioxide 23.0, Anion Gap 10, BUN 26 H, Creatinine 0.96, Estim Creat Clear Calc 81.37, Est GFR (MDRD) Af Amer 105, Est GFR (MDRD) Non-Af 87, BUN/Creatinine Ratio 27.1 H, Glucose 82, Calcium 8.2 L, Total Bilirubin 1.90 H, Direct Bilirubin 0.48 H, AST 75 H, ALT 98 H, Alkaline Phosphatase 185 H, Total Protein 6.0 L, Albumin 2.8 L, Globulin 3.2, Triglycerides 62, Cholesterol 97, LDL Cholesterol 48, VLDL Cholesterol 12, HDL Cholesterol 37 L 01/15/20 06:18: WBC 9.1, RBC 4.06 L, Hgb 11.8 L, Hct 36.2 L, MCV 89.2, MCH 29.1, MCHC 32.6, RDW Std Deviation 43.8, RDW Coeff of Renato 13.3, Plt Count 235, MPV 10.2, Immature Gran % (Auto) 0.300, Neut % (Auto) 70.0, Lymph % (Auto) 17.8 L, [place] % (Auto) 10.5 H, Eos % (Auto) 1.0, Baso % (Auto) 0.4, Absolute Neuts (auto) 6.3, Absolute Lymphs (auto) 1.61, Nucleated RBC % 0 Current Medications Acetaminophen (Tylenol) 650 mg PO Q6H PRN PRN PRN Reason: Pain Score 1-10/Temp > 100.7 F Al Hydroxide/Mg Hydroxide (Mylanta Ii) 30 ml PO Q6H PRN PRN PRN Reason: Gastric Burning Albuterol Sulfate (Ventolin Aerosols) 2.5 mg INHALATION Q2H PRN PRN PRN Reason: SOB/Wheezing Amiodarone HCl (Cordarone) 200 mg PO DAILY [facility] Last Admin: 01/15/20 09:31 Dose: 200 mg Documented by: Doxycycline Monohydrate (Doxycycline) 100 mg PO BID [facility] Last Admin: 01/15/20 09:31 Dose: 100 mg Documented by: Enoxaparin Sodium (Lovenox) 40 mg SC DAILY [facility] Last Admin: 01/15/20 09:31 Dose: 40 mg Documented by: Guaifenesin (Mucinex) 1,200 mg PO BID [facility] Last Admin: 01/15/20 09:31 Dose: 1,200 mg Documented by: Hydralazine HCl (Apresoline) 75 mg PO Q8 [facility] Last Admin: 01/15/20 13:27 Dose: Not Given Documented by: Piperacillin Sod/Tazobactam (Sod 3.375 gm/ Sodium Chloride) 50 mls @ 12.5 mls/hr IV Q8 [facility] Stop: 01/21/20 16:01 Last Admin: 01/15/20 13:26 Dose: 12.5 mls/hr Documented by: Isosorbide Dinitrate (Isordil) 40 mg PO TID [facility] Last Admin: 01/15/20 05:36 Dose: Not Given Documented by: Lactobacillus Acidophilus (Acidophilus) 1 tablet PO BID [facility] Last Admin: 01/15/20 09:31 Dose: 1 tablet Documented by: Losartan Potassium (Cozaar) 12.5 mg PO BID [facility] Last Admin: 01/15/20 09:31 Dose: 12.5 mg Documented by: Morphine Sulfate () 2 mg IV Q3H PRN PRN PRN Reason: Pain Score 6-10/10 Oxycodone HCl (Oxyir) 5 mg PO Q4H PRN PRN PRN Reason: Pain Score 4-5/10 Senna/Docusate Sodium (Senokot-S, Genie-Colace) 2 tablet PO BID PRN PRN PRN Reason: Constipation Sertraline HCl (Zoloft) 50 mg PO DAILY [facility] Last Admin: 01/15/20 09:31 Dose: 50 mg Documented by: Sodium Chloride () 10 - 40 ml IV UD PRN PRN Reason: SALINE FLUSH STROKE Vital Signs/Narrative: Vital Signs Temp Pulse Resp BP BP Pulse Ox 01/15/20 11:30 97.6 F L 95 18 102/77 100 01/15/20 09:35 104/67 Medical Necessity - Tobacco Use Smoking Status: Never smoker Tobacco Use: Non-smoker Assessment/Plan All Active Problems Right upper lobe pneumonia (Acute) The patient is a 54 year old M with history of chronic heart failure, atrial flutter came to ED with cough for 1 week and hemoptysis for last 2 days and chest x-ray consistent of right upper lobe pneumonia. Chest x-ray shows right upper lobe consolidation. EKG shows atrial flutter with variable rate with nonspecific intraventricular conduction delay, ventricular rate 89 bpm. [] 1. Right upper lobe pneumonia most likely bacterial superimposed on rhinovirus: Patient is being admitted in PCU after COVID-19 PCR came negative. Patient had 2 g IV ceftriaxone and Zithromax in ED. patient started on broad-spectrum antibiotics Zosyn. Doxycycline discontinued after rhinovirus came positive. Respiratory panel positive of rhinovirus. Blood cultures x2 are pending. Gram stain shows 1+ gram-positive rods, 1+ gram-negative rods and rare WBC and RBC. Albuterol PRN for shortness of breath. 2. Chronic systolic heart failure: Patient does not have leg edema, pulmonary congestion/edema. Patient is on losartan, isosorbide dinitrate, hydralazine and amiodarone at home and is continued. CHF core measures including fluid restriction to 1.5 L, daily weight monitoring, cardiac diet and intake and output charting. 2D echo 01/15/2020 Interpretation Summary Severely dilated left ventricle. The estimated ejection fraction is 20-25 %. Severe global left ventricular systolic dysfunction. Moderately dilated right ventricle. Moderately severe global right ventricular systolic dysfunction. The left atrium is severely enlarged. Spontaneous echo suggestive of low flow The right atrium is moderately enlarged. Mild (1+) eccentric mitral valve insufficiency. Mild to moderate (1-2+) tricuspid valve insufficiency. The inferior vena cava is dilated and partially collapses. 3. Chronic atrial flutter: Patient is scheduled for RFA in [facility] on January 24. Continue amiodarone. Heart rate is controlled. INR elevated. Continue to hold Coumadin monitor INR daily. 4. VTE prophylaxis: INR supratherapeutic. Inpatient E&M: 48298 Subs Hosp L2
--- NOTE | 2020-01-15 13:49 | CASEMGMT ---
MIGUEL SETH assessment: Phone interview with patient for initial transition planning/care coordination assessment d/t pt being in droplet precautions at this time. MIGUEL SETH introduced self and role at [facility], pt voices understanding and consents to assessment at this time. Pt is A/Ox4 at this time and answers all questions appropriately at this time. Care providers, pharmacy, and demographics verified at this time. Presentation: Pt c/o cough x2 days, now coughing up blood-pt to have cardiac ablation 01/27/2020 Admitting dx: PCP: Juan M Specialists: AMAN Barone philatelic consultant; Db Santizo philatelic consultant-to do ablation Preferred Pharmacy: [facility] Insurance: [facility] [place] Prescription Benefit: Self pay, states no concerns Living Will/HPOA: Pt states has a LW but not a HPOA at this time and is aware that the LW is not on file at [facility] at this time. LNOK: Nava Love, Living Arrangements: Pt states lives with in 2 story home and states no concerns at home at this time. Pt states is independent with ADL's. Transportation: Pt states no transportation concerns at this time. DME/HHC: Pt states no current DME or need for any at this time. Pt states on hx of HHC or SNF in the past. Pt states no concerns with going home at time of discharge. 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 Pt states does not smoke cigarettes or drink ETOH. Pt states no further concerns/needs at this time. CM to follow for any further discharge planning/needs. Advised pt to ask for CM if any further questions/concerns/needs arise, voices understanding. Pt Goal: Home Plan[place] MIGUEL SETH
[2020-01-15 14:35] LABS: Magnesium 2.1 mg/dL (1.6-2.6); Phosphorus 3.6 mg/dL (2.5-4.9)
[2020-01-15] MEDS: Isosorbide DN 20 MG Tablet 40 MG PO (14:45)
[2020-01-15] MEDS: Metoclopramide 10 MG/2 ML Vial 5 MG IV ×2 (14:47→21:01)
[2020-01-15] MEDS: 0.9% Saline Lock 10 ML Syringe IV ×2 (14:47→21:01)
[2020-01-15] MEDS: oxyCODONE 5 MG Tablet PO (23:18)
[2020-01-15] MEDS: Acetaminophen 325 MG Tablet 650 MG PO (23:19)
[2020-01-16] VITALS (7 sets, daily range): BP systolic 95–123; BP diastolic 57–82; PULSE 81–100; RESP 16–18; TEMP 36.6–37; O2SAT 95–98
[2020-01-16] MEDS: Pantoprazole Sodium 20 MG Tablet PO ×2 (00:09→09:09)
[2020-01-16] MEDS: Mag Hydrox/Al Hydrox/Simeth 30 ML UDC PO (00:09)
[2020-01-16] MEDS: hydrALAZINE 50 MG Tablet 75 MG PO (06:18)
[2020-01-16] MEDS: Isosorbide DN 20 MG Tablet 40 MG PO (06:19)
[2020-01-16 06:34] LABS: Prothrombin Time (Protime)PT. 37.5 SECONDS (11.7-14.9)
[2020-01-16 06:50] LABS: AST(SGOT) 92 U/L (15-37); Alanine Aminotransfer ALT/SGPT 145 U/L (16-61); Albumin, Serum 2.8 g/dL (3.2-5.0); Alkaline Phosphatase 164 U/L (45-117); Bilirubin, Direct 0.37 mg/dL (0.00-0.30); Globulin 3.4 g/dL (2.2-4.2); Protein, Total 6.2 g/dL (6.4-8.2)
[2020-01-16 06:52] LABS: International Normalized Ratio 3.8
[2020-01-16] MEDS: Sertraline 50 MG Tablet PO (09:09)
[2020-01-16] MEDS: guaiFENesin 1,200 MG Tablet 1200 MG PO (09:09)
[2020-01-16] MEDS: Amiodarone 200 MG Tablet PO (09:18)
[2020-01-16 10:53] LABS: Absolute Lymphocyte Count 1.37 X10^3/uL (0.83-4.51); Absolute Neutrophil Count 5.5 X10^3/uL (2.0-7.7); Basophil# 0.02 X10^3/uL; Basophil% 0.3 % (0-1); Eosinophil# 0.04 X10^3/uL; Eosinophils% 0.5 % (0-5); Hemoglobin 11.7 g/dL (13.0-16.5); Lymphocyte # 1.37 X10^3/ul (4.0); Lymphocyte % 17.7 % (19-41); Mean Corp Hgb Conc 31.6 g/dL (32-36); Mean Corpuscular Hgb 28.4 pg (27.0-32.0); Mean Corpuscular Volume 89.8 fL (80-94); Mean Platelet Vol. 10.4 fl (6.2-12.0); Monocyte# 0.81 X10^3/uL; Monocyte% 10.4 % (0-10); NRBC Flagged by Analyzer 0 % (0-5); Neutrophil # 5.49 X10^3/uL (2.7-7.7); Neutrophil % 70.7 % (47-70); Platelet Count 247 K/mm3 (150-450); RBC Distribution Width CV 13.2 % (11.6-14.6); RBC Distribution Width SD 43.7 fl (35.1-43.9); Red Blood Count 4.12 M/mm3 (4.6-6.2); White Blood Count 7.8 K/mm3 (4.4-11.0)
[2020-01-16 11:11] LABS: Anion Gap 9 (5-15); BUN 28 mg/dL (7-18); BUN/Creat Ratio 32.9 RATIO (10-20); Calcium,Total 8.6 mg/dL (8.5-10.1); Chloride 113 mmol/L (98-107); Creatinine, Serum 0.85 mg/dL (0.70-1.30); EST Glomerular Filtration Rate 100 mL/min (>60); Est Glom Filt Rate - Afr Amer 120 mL/min (>60); Estimated Creatinine Clearance 92.89 ml/min; Glucose 102 mg/dL (74-106); Magnesium 2.2 mg/dL (1.6-2.6); Phosphorus 3.2 mg/dL (2.5-4.9); Potassium 4.1 mmol/L (3.5-5.1); Sodium Level 143 mmol/L (136-145)
--- NOTE | 2020-01-16 11:26 | DCINST_ITS ---
- Discharge Diagnoses Current Active Problems: Current Active and Chronic Problems Chronic systolic heart failure (Chronic) Right upper lobe pneumonia (Acute) You will use the following diet at home:: Cardiac Your food should be the consistency of: Regular Your liquids should be the consistency of: Regular/Thin Discharge Activity: May Not Drive Instructions: ED PNEUMONITIS Adult Additional Instructions: Advised PT/INR on 01/19/2020 and follow with PCP to titrate the dose Coumadin accordingly. Currently hold Coumadin as INR is expected to go up while the patient is on antibiotic, Levaquin. Follow-up solar sales estimator Dr. Sales in [facility] on January 24 for radiofrequency ablation for atrial flutter/fibrillation and [facility] solar sales estimator Dr. Barone. Allergies/Adverse Reactions: Allergies azithromycin [From Zithromax] Allergy (Verified 01/14/20 15:47) Rash lisinopril Adverse Reaction (Verified 01/14/20 14:35) cough Medications to take at Discharge Amiodarone HCl 200 mg PO DAILY 11/05/19 Isosorbide Dinitrate 40 mg PO TID 11/05/19 Losartan Potassium 12.5 mg PO BID 11/05/19 Sertraline HCl 50 mg PO DAILY 11/05/19 hydrALAZINE [Apresoline] 75 mg PO Q8H 11/05/19 Ibuprofen 400 mg PO DAILY PRN PRN 01/14/20 Lactobacillus Acidophilus [Probiotic] 1 cap PO BID 01/14/20 [place]-3 Fatty Acids/Fish Oil [[place] 3 1,000 mg Softgel] 1 cap PO BID 01/14/20 Guaifenesin [Mucinex] 1,200 mg PO BID #14 tab 01/16/20 Warfarin [Coumadin] 2.5 mg PO SUMOTUWEFRSA #0 01/16/20 Warfarin [Coumadin] 5 mg PO TH #0 01/16/20 levoFLOXacin tablet [Levaquin tablet] 500 mg PO DAILY #5 tab 01/16/20 The following prescriptions were given: levoFLOXacin tablet [Levaquin tablet] 500 mg PO DAILY #5 tab Transmission Status: Pending to [facility] Guaifenesin [Mucinex] 1,200 mg PO BID #14 tab Transmission Status: Pending to [facility] Primary Care Physician: Tyrone Mcgowan MD [Primary Care Provider] - 01/17/20 Please follow up with your Primary Care Physician in: in 2 weeks Test Results: Test results from this visit will be discussed in further detail at your follow- up appointment, if applicable.
--- NOTE | 2020-01-16 11:32 | PCM.DC.SUM ---
Discharge Date and Diagnosis - Problem List Patient Problems: Active and Suspected Problems Right upper lobe pneumonia (Acute) Date of Admission: 01/14/20 Date of Discharge: 01/16/20 - Primary Discharge Diagnosis Acute Problems: Active Problems Right upper lobe pneumonia (Acute) Right upper lobe pneumonia probably bacterial superinfection on rhinovirus. - Secondary Discharge Diagnosis Chronic Problems: Chronic Problems Chronic systolic heart failure (Chronic) Hospital Course and Treatment Summary of Care Provided: [] The patient is a 54 year old M with history of chronic heart failure, atrial flutter came to ED with cough for 1 week and hemoptysis for last 2 days and chest x-ray consistent of right upper lobe pneumonia. Chest x-ray shows right upper lobe consolidation. EKG shows atrial flutter with variable rate with nonspecific intraventricular conduction delay, ventricular rate 89 bpm. [] 1. Right upper lobe pneumonia most likely bacterial superimposed on rhinovirus: Patient is being admitted in PCU after COVID-19 PCR came negative. Patient had 2 g IV ceftriaxone and Zithromax in ED. patient started on broad-spectrum antibiotics Zosyn. Doxycycline discontinued after rhinovirus came positive. Respiratory panel positive of rhinovirus. Blood cultures x2 are negative for 2 days. Preliminary Gram stain shows normal respiratory ann. Patient also had some diarrhea which is not new for him. He intermittently gets bloating, dyspeptic symptoms and diarrhea. As per patient he has not been diagnosed with any specific disease for that. C. difficile is negative. On lactobacillus. He denies lactose intolerance, celiac disease and IBS. Patient had 3 days of IV antibiotics and pneumonia symptoms have improved. Discharged on 5 more days of Levaquin. 2. Chronic systolic heart failure: Patient does not have leg edema, pulmonary congestion/edema. Patient is on losartan, isosorbide dinitrate, hydralazine and amiodarone at home and is continued. CHF core measures including fluid restriction to 1.5 L, daily weight monitoring, cardiac diet and intake and output charting. 2D echo 01/15/2020 Interpretation Summary Severely dilated left ventricle. The estimated ejection fraction is 20-25 %. Severe global left ventricular systolic dysfunction. Moderately dilated right ventricle. Moderately severe global right ventricular systolic dysfunction. The left atrium is severely enlarged. Spontaneous echo suggestive of low flow The right atrium is moderately enlarged. Mild (1+) eccentric mitral valve insufficiency. Mild to moderate (1-2+) tricuspid valve insufficiency. The inferior vena cava is dilated and partially collapses. Findings of 2D echo explained to the patient especially severely dilated LV with EF 20 to 25% and moderately dilated RV. Patient had 12 runs of NSVT and electrolytes were reviewed and is normal limit. Patient has follow-up with the quarter section ironer Dr. Sales January 24 for radiofrequency ablation of atrial flutter. He also follows quarter section ironer Dr. Barone in the [facility]. Advised to keep follow-up. Patient also had elevated total bilirubin 2.5 which decreased to 1.4. Alkaline phosphatase elevated and ALT AST 145/92. Patient is on amiodarone low-dose 200 mg daily. Follow-up with quarter section ironer. Elevated transaminases and total bilirubin may be from pneumonia, infection complicated by congestive heart failure and amiodarone 3. Chronic atrial flutter: Patient is scheduled for RFA in [facility] on January 24. Continue amiodarone. Heart rate is controlled. INR elevated. Continue to hold Coumadin and advised to check PT/INR with PCP on 01/19/2020 and adjust Coumadin accordingly. PT/INR is suspected to go up while the patient is on antibiotic, Levaquin. 4. VTE prophylaxis: INR supratherapeutic. Discharge medication reconciliation done. Discharge follow-up instructions completed. Discharge process discussed with the patient and all questions were answered to patient's satisfaction. Discharge process explained to the patient. Total time spent, exact 35 minutes on discharge meds reconciliation, examination, coordination of care with nurses and ancillary staff, review of imaging and blood test and discussion with the patient on follow-up instructions Patient Problems: Active and Suspected Problems Right upper lobe pneumonia (Acute) Objective: Patient overall breathing status is much improved. Cough and hemoptysis is almost resolved. On the rn cardiac patient symptoms of infrequent PVCs and one 12 beat NSVT. Patient has atrial flutter/fibrillation and has chronic heart failure with dilated LV and RV for which arrhythmia, NSVT is expected and is not new for him. Electrolytes were checked. K4.1, magnesium and phosphorus are normal limit. Physical exam General: Alert, Oriented x3, Cooperative HEENT: Atraumatic, PERRLA, EOMI, Normocephalic Oral: No Gingival or Mucosal Lesions/ Ulcerations Neck: Supple, No JVD, Negative Carotid Bruits Lungs: Air entry diminished in bilateral lung bases. No crepitation/rhonchi. No tachypnea. Cardiovascular: Irregular heart rate, infrequent PVCs. Normal S1, Normal S2, No murmurs Abdomen: Bowel Sounds Present, Soft, Non Tender, Non-Distended : No renal angle tenderness. No suprapubic tenderness. Extremities: No edema, Capillary Refill Less than 3 Seconds Skin: No rashes, No breakdown Musculoskeletal: No Tenderness to Palpation of Joints or Extremities Neurological: Cranial nerves II-XII grossly intact, Deep Tendon Reflexes 2+/4 and Symmetrical, Neuro grossly intact Psych/Mental Status: Normal Affect, Appropriate. - Physical Exam Vitals/I&O's: Vital Signs Temp Pulse Resp BP Pulse Ox 98.6 F 81 18 95/57 L 95 01/16/20 09:08 01/16/20 09:08 01/16/20 09:08 01/16/20 09:08 01/16/20 09:08 Oxygen Flow Rate (L/min) 2 Oxygen Delivery Method Room Air Weight: 145 lb 15.136 oz Body Mass Index (BMI) 22.9 Intake and Output for Last 24 Hours 01/14/20 01/15/20 01/16/20 23:59 23:59 23:59 Intake Total 1716.67 / 1716.67 1479.58 / 1479.58 100.25 / 100.25 Output Total 750 / 750 700 / 700 400 / 400 Balance 966.67 / 966.67 779.58 / 779.58 -299.75 / -299.75 Microbiology Past 72 Hours 01/14/20 16:45 Sputum, Expectorated/Coughed Gram Stain - Final 01/14/20 16:45 Sputum, Expectorated/Coughed Respiratory Culture - Preliminary Appears to be normal respiratory ann. Further studies to follow. 01/16/20 06:30 Stool C. difficile DNA Amplification - Final 01/14/20 07:17 Mucosa - Nose Respiratory Panel (PCR) - Final Rhinovirus 01/14/20 23:45 Urine, Clean Catch Legionella Antigen - Final 01/14/20 23:45 Urine, Clean Catch Streptococcus pneumoniae Antigen (M - Final Laboratory Results 01/15/20 06:18: Phosphorus 3.6, Magnesium 2.1 01/16/20 05:43: PT 37.5 H, INR 3.8 H* 01/16/20 05:43: Total Bilirubin 1.40 H, Direct Bilirubin 0.37 H, AST 92 H, ALT 145 H, Alkaline Phosphatase 164 H, Total Protein 6.2 L, Albumin 2.8 L, Globulin 3.4 01/16/20 05:43: WBC 7.8, RBC 4.12 L, Hgb 11.7 L, Hct 37.0 L, MCV 89.8, MCH 28.4, MCHC 31.6 L, RDW Std Deviation 43.7, RDW Coeff of Renato 13.2, Plt Count 247, MPV 10.4, Immature Gran % (Auto) 0.400, Neut % (Auto) 70.7 H, Lymph % (Auto) 17.7 L, Green % (Auto) 10.4 H, Eos % (Auto) 0.5, Baso % (Auto) 0.3, Absolute Neuts (auto) 5.5, Absolute Lymphs (auto) 1.37, Nucleated RBC % 0 01/16/20 05:43: Sodium 143, Potassium 4.1, Chloride 113 H, Carbon Dioxide 21.0, Anion Gap 9, BUN 28 H, Creatinine 0.85, Estim Creat Clear Calc 92.89, Est GFR (MDRD) Af Amer 120, Est GFR (MDRD) Non-Af 100, BUN/Creatinine Ratio 32.9 H, Glucose 102, Calcium 8.6, Phosphorus 3.2, Magnesium 2.2 01/16/20 05:43: Phosphorus Cancelled Current Medications Acetaminophen (Tylenol) 650 mg PO Q6H PRN PRN PRN Reason: Pain Score 1-10/Temp > 100.7 F Last Admin: 01/15/20 23:19 Dose: 650 mg Documented by: Al Hydroxide/Mg Hydroxide (Mylanta Ii) 30 ml PO Q6H PRN PRN PRN Reason: DYSPEPSIA Last Admin: 01/16/20 00:09 Dose: 30 ml Documented by: Albuterol Sulfate (Ventolin Aerosols) 2.5 mg INHALATION Q2H PRN PRN PRN Reason: SOB/Wheezing Amiodarone HCl (Cordarone) 200 mg PO DAILY [facility] Last Admin: 01/16/20 09:18 Dose: 200 mg Documented by: Guaifenesin (Mucinex) 1,200 mg PO BID [facility] Last Admin: 01/16/20 09:09 Dose: 1,200 mg Documented by: Hydralazine HCl (Apresoline) 75 mg PO Q8 [facility] Last Admin: 01/16/20 06:18 Dose: 75 mg Documented by: Piperacillin Sod/Tazobactam (Sod 3.375 gm/ Sodium Chloride) 50 mls @ 12.5 mls/hr IV Q8 [facility] Stop: 01/21/20 16:01 Last Infusion: 01/16/20 10:36 Dose: Infused Documented by: Sodium Chloride () 250 mls @ 15 mls/hr IV .[id number] PRN PRN Reason: Saline Flush Last Infusion: 01/16/20 10:36 Dose: 15 mls/hr Documented by: Sodium Chloride () 250 mls @ 15 mls/hr IV .[id number] PRN PRN Reason: Additional IVPB Infusion Isosorbide Dinitrate (Isordil) 40 mg PO TID [facility] Last Admin: 01/16/20 06:19 Dose: 40 mg Documented by: Lactobacillus Acidophilus (Acidophilus) 1 tablet PO TID [facility] Last Admin: 01/16/20 06:19 Dose: 1 tablet Documented by: Losartan Potassium (Cozaar) 12.5 mg PO BID [facility] Last Admin: 01/16/20 09:09 Dose: Not Given Documented by: Metoclopramide HCl (Reglan) 5 mg IV Q6H PRN PRN PRN Reason: nausea/vomiting Last Admin: 01/15/20 21:01 Dose: 5 mg Documented by: Morphine Sulfate () 2 mg IV Q3H PRN PRN PRN Reason: Pain Score 6-10/10 Oxycodone HCl (Oxyir) 5 mg PO Q4H PRN PRN PRN Reason: Pain Score 4-5/10 Last Admin: 01/15/20 23:18 Dose: 5 mg Documented by: Pantoprazole Sodium (Protonix) 20 mg PO BID [facility] Last Admin: 01/16/20 09:09 Dose: 20 mg Documented by: Senna/Docusate Sodium (Senokot-S, Genie-Colace) 2 tablet PO BID PRN PRN PRN Reason: Constipation Sertraline HCl (Zoloft) 50 mg PO DAILY [facility] Last Admin: 01/16/20 09:09 Dose: 50 mg Documented by: Sodium Chloride () 10 - 40 ml IV UD PRN PRN Reason: SALINE FLUSH Last Admin: 01/15/20 21:01 Dose: 20 ml Documented by: Discharge Activity: May Not Drive Home Medications: Medications to take at Discharge Amiodarone HCl 200 mg PO DAILY 11/05/19 Isosorbide Dinitrate 40 mg PO TID 11/05/19 Losartan Potassium 12.5 mg PO BID 11/05/19 Sertraline HCl 50 mg PO DAILY 11/05/19 hydrALAZINE [Apresoline] 75 mg PO Q8H 11/05/19 Ibuprofen 400 mg PO DAILY PRN PRN 01/14/20 Lactobacillus Acidophilus [Probiotic] 1 cap PO BID 01/14/20 [place]-3 Fatty Acids/Fish Oil [[place] 3 1,000 mg Softgel] 1 cap PO BID 01/14/20 Guaifenesin [Mucinex] 1,200 mg PO BID #14 tab 01/16/20 Warfarin [Coumadin] 2.5 mg PO SUMOTUWEFRSA #0 01/16/20 Warfarin [Coumadin] 5 mg PO TH #0 01/16/20 levoFLOXacin tablet [Levaquin tablet] 500 mg PO DAILY #5 tab 01/16/20 Following Prescriptions Were Given to Patient: levoFLOXacin tablet [Levaquin tablet] 500 mg PO DAILY #5 tab Transmission Status: Pending to [facility] Guaifenesin [Mucinex] 1,200 mg PO BID #14 tab Transmission Status: Pending to [facility] Primary Care Physician: Tyrone Mcgowan MD [Primary Care Provider] - 01/17/20 Please follow up with your Primary Care Physician in: in 2 weeks Patient Instructions: ED PNEUMONITIS Adult Medical Necessity - Tobacco Use Smoking Status: Never smoker Tobacco Use: Non-smoker Meaningful Use Info Meaningful Use Diagnoses (Choose all that apply): None applicable Inpatient E&M: 59544 Disch Hosp
--- NOTE | 2020-01-17 15:20 | CASEMGMT ---
MIGUEL SETH DC PHONE CALL DC DATE: 01/14/2020 DC DISPOSITION: Home DC DIAGNOSIS: Pneumonia LACE/STRATA: 03/07 F/U APPTS MADE PRIOR TO DC: No PRESCRIPTIONS ACQUIRED BY PT: yes Intro role of CM to patient via phone. Patient states he is feeling improved, has a follow up appointment with his PCP on and has no questions re: his prescriptions. No care improvement suggestions were given. Saud DELUNA RN ACM
--- NOTE | 2020-01-17 15:30 | CASEMGMT ---
MIGUEL SETH DC PHONE CALL DC DATE: 01/16/2020 DC DISPOSITION: Home DC DIAGNOSIS: Pneumonia LACE/STRATA: 03/07 F/U APPTS MADE PRIOR TO DC: No PRESCRIPTIONS ACQUIRED BY PT: yes Intro role of CM to patient via phone. Patient states he is feeling improved, has a follow up appointment with his PCP on and has no questions re: his prescriptions. No care improvement suggestions were given. Saud DELUNA RN ACM
== END 2020-01-16 12:42 | disposition home or self-care (01) | DRG 194 ==
LOC: ED 07:48 → PCU 12:09
PROVIDERS: Admitting Provider Internal Medicine; Emergency Provider Emergency Medicine; PCP Internal Medicine; Visit Provider Internal Medicine
DX: J12.89 Other viral pneumonia (principal); I50.22 Chronic systolic (congestive) heart failure; I48.92 Unspecified atrial flutter; J15.9 Unspecified bacterial pneumonia; B97.89 Other viral agents as the cause of diseases classified elsewhere; R79.1 Abnormal coagulation profile; T45.515A Adverse effect of anticoagulants, initial encounter; I95.9 Hypotension, unspecified; I48.91 Unspecified atrial fibrillation
CPT/HCPCS: 36415; 71045; 80048; 80061; 80076; 83605; 83690; 83735; 83880; 84100; 85025; 85610; 87040; 87070; 87077; 87205; 87449; 87493; 87633; 87635; 87641; 93005; 93306; 99251; 99285; C9803; J7030; J7040; J7050; Q9957; A4216; G0463; J0696; J1940; J2405; U0003

== ENCOUNTER 2021-06-18 14:18 | Outpatient (CLI) | payer SELFPAY ==
--- NOTE | 2021-06-18 14:25 | CT_ITS ---
STUDY: CT SOFT TISSUE NECK WITH CONTRAST REASON FOR EXAM: Male, 55 years old. PARALYSIS OF VOCAL CORDS, DYSPHASIA RADIATION DOSAGE (If Supplied By Facility): CTDIvol = ( 15.57 ) mGy, DLP = ( 517.46 ) mGycm TECHNIQUE: The patient was scanned in a multi-detector CT scanner. High resolution transaxial imaging was performed following intravenous administration of IV 100mL Isovue-370. Sagittal and coronal images were reconstructed. Individualized dose optimization techniques were used for this CT. COMPARISON: None. FINDINGS: Normal bilateral parotid glands. Normal bilateral geodetic computator spaces. Normal bilateral parapharyngeal spaces. Normal bilateral carotid spaces. Normal bilateral sublingual and submandibular glands and spaces. Normal visualized nasopharynx. Normal retropharyngeal space. Normal perivertebral space. Normal visualized bilateral faucial tonsils. The visualized tongue, tongue base and oropharynx are normal. The visualized cervical lymph nodes (levels I-) are within normal size limits, and maintain normal morphology. There is no demonstrated solid or cystic mass lesion. There is no abnormal contrast enhancement. Normal epiglottis, bilateral vallecula and hypopharynx. The pre-epiglottic and paraglottic adipose spaces are normal. Normal visualized bilateral piriform sinuses, aryepiglottic folds, vocal cords, and arytenoid-cricoid articulations. Normal subglottic trachea. Normal bilateral lobes of the thyroid gland. Normal visualized pulmonary apices. Normal visualized paranasal sinuses. There is multilevel degenerative changes of the cervical spine. CT/Soft Tissue Neck WITH Contrast IMPRESSION: No acute abnormality is seen Electronically Signed: Antonio Ayala MD at 15:01 EST ,
[2021-06-18 14:46] LABS: CREATININE FINGERSTICK 0.9 mg/dL (0.70-1.30); EGFR FINGERSTICK > 60.0000 mL/min (>60)
== END 2021-06-18 23:59 | disposition home or self-care (01) ==
PROVIDERS: PCP Internal Medicine; Referring Provider Otolaryngology; Visit Provider Otolaryngology
DX: J38.01 Paralysis of vocal cords and larynx, unilateral (principal); R13.19 Other dysphagia
CPT/HCPCS: 70491; Q9967

== ENCOUNTER 2021-06-26 07:34 | Day surgery (SDC) | payer SELFPAY ==
--- NOTE | 2021-06-26 07:44 | EKG12_ITS ---
Test Reason : PREOP Blood Pressure : / mmHG Vent. Rate : 070 BPM Atrial Rate : 070 BPM P-R Int : 190 ms QRS Dur : 162 ms QT Int : 552 ms P-R-T Axes : 040 -75 061 degrees QTc Int : 596 ms Atrial-sensed ventricular-paced rhythm Abnormal ECG When compared with ECG of 14-JAN-2020 07:08, Electronic ventricular pacemaker has replaced Atrial flutter Confirmed by PAM PATTON, BUBBA ([id number]), editor continuity and script DISHA DUEÑAS ([id number]) on 07/03/2021 11:27:47 AM Referred By: Perez Ellis Confirmed By:BUBBA OROZCO MD
[2021-06-26 08:03] VITALS: BP 91/58; PULSE 70; RESP 16; TEMP 36.9; O2SAT 98; BMI 21.9
[2021-06-26] MEDS: Lactated Ringers 1,000 ML 15 ML IV (08:08)
[2021-06-26 08:19] LABS: Anion Gap 6 (5-15); BUN 23 mg/dL (7-18); BUN/Creat Ratio 20.7 RATIO (10-20); Calcium,Total 8.7 mg/dL (8.5-10.1); Chloride 106 mmol/L (98-107); Creatinine, Serum 1.11 mg/dL (0.70-1.30); EST Glomerular Filtration Rate 73 mL/min (>60); Est Glom Filt Rate - Afr Amer 88 mL/min (>60); Estimated Creatinine Clearance 66.95 ml/min; Glucose 92 mg/dL (74-106); Potassium 3.5 mmol/L (3.5-5.1); Sodium Level 140 mmol/L (136-145)
--- NOTE | 2021-06-26 09:15 | PCM.DC ---
Discharge Instructions Diet Discharge Diet: No restrictions Activity Discharge Activity: Return to Normal Activity Dressing / Incision Call your doctor if your incision/area has: Increased Pain/ Swelling Follow Up Care Please Follow Up With: Perez Ellis MD When: 1 month Test Results: Test results from this visit will be discussed in further detail at your follow-up appointment, if applicable. Discharge Plan Admission Attending Provider: Perez Ellis Primary Care Provider: Tyrone Mcgowan Discharge Orders/Prescriptions Prescriptions: No Action sertraline 50 MG tablet 50 mg PO DAILY RF: 0 amiodarone 200 MG tablet 200 mg PO DAILY RF: 0 hydralazine 25 MG tablet 50 mg PO Q8H RF: 0 isosorbide dinitrate 5 MG tablet 40 mg PO TID RF: 0 ibuprofen 200 MG tablet 400 mg PO DAILY PRN PRN (Reason: Pain Or Fever) RF: 0 omega-3 fatty acids-fish oil 1 EACH capsule 1 cap PO BID RF: 0 Lactobacillus acidophilus 1 EACH capsule 1 cap PO BID RF: 0 Entresto 49-51 mg Tablet 1 tab PO TID RF: 0 warfarin 2.5 MG tablet 2.5 mg PO SUMOWEFRSA RF: 0 warfarin 5 MG tablet 5 mg PO TUTH RF: 0 Disposition Discharge Orders: Discharge Patient (Routine); Ordered 06/26/21 Ordered By: Dr. Perez Ellis
--- NOTE | 2021-06-26 09:16 | PCM.OPRPT ---
Problems Associated Problem List Diagnoses (1) Vocal cord paralysis: Report of Operation Date of Procedure: 06/26/21 Pre-Operative Diagnosis: vocal cord immobility, left Post-Operative Diagnosis: vocal cord immobility, left Surgery/Procedure Performed:: direct laryngoscopy with vocal cord injection, left Surgeon: Perez Ellis Type of Anesthesia: General Description of Procedure: on the day of the procedure, after appropriate informed consent was obtained, the patient was brought to the operating room and placed in supine position on the operating table. he was placed under general endotracheal anesthesia by the anesthesiologist. the endotracheal tube was secured, the eyes were taped. the table was rotated 90 degrees toward the surgeon. a mouth guard was placed. a glottic view was obtained with the brendan laryngoscope and suspended from the cuello stand. his epiglottis was excessively lax and protruded over his glottis. 0.8cc of prolaryn gel was injected at the junction of the anterior 2/3 and posterior 1.3 lateral to the left vocal cord. the cord was well medialized. he was awoken from anesthesia and transferred to the PACU in stable condition.
[2021-06-26 09:20] VITALS: BP 117/77; BP 91/58; PULSE 70; RESP 16; TEMP 36.9; O2SAT 97
[2021-06-26 09:30] VITALS: BP 104/77; BP 91/58; PULSE 72; RESP 16; O2SAT 97
[2021-06-26 09:45] VITALS: BP 91/58; BP 92/62; PULSE 68; RESP 16; O2SAT 99
[2021-06-26 09:57] VITALS: BP 91/58; BP 92/62; PULSE 68; RESP 16; TEMP 37; O2SAT 95
[2021-06-26 10:26] VITALS: BP 91/58
== END 2021-06-26 23:59 | disposition home or self-care (01) ==
LOC: SDC 07:35 → AC 07:36
PROVIDERS: PCP Internal Medicine; Referring Provider Otolaryngology; Visit Provider Otolaryngology
PROC: (CPT 31570; principal; 2021-06-26 08:45)
DX: J38.00 Paralysis of vocal cords and larynx, unspecified (principal); I48.91 Unspecified atrial fibrillation; I10 Essential (primary) hypertension; F32.A Depression, unspecified; Z79.899 Other long term (current) drug therapy; Z79.01 Long term (current) use of anticoagulants; Z86.718 Personal history of other venous thrombosis and embolism; Z95.810 Presence of automatic (implantable) cardiac defibrillator; Z87.891 Personal history of nicotine dependence; R13.19 Other dysphagia
CPT/HCPCS: 31570; 00320; 80048; 87426; 93005; J7120; J2405